=== PATIENT | female | born 1965 | race Caucasian/White ===

== ENCOUNTER 2023-10-31 19:49 | Emergency (ER) | payer BC, OTHER ==
[2023-10-31 20:05] VITALS: BP 126/78; TEMP 98.6; BMI 29.2
[2023-10-31] MEDS ORDERED: ONDANSETRON *ODT* 4 MG TABLET ONE (20:36)
[2023-10-31] MEDS: ONDANSETRON *ODT* 4 MG TABLET SL ONE (20:38)
[2023-10-31 23:38] VITALS: PULSE 68; RESP 16
== END 2023-10-31 23:50 | disposition home or self-care (01) ==
LOC: JER 19:49 → JERFT 19:49
DX: M25.561 Pain in right knee (principal)
CPT/HCPCS: 73562-TC-RT-FY; 93971-TC; 99284-25; Q0162